=== PATIENT | male | born 1970 | race African-American/Black ===

== ENCOUNTER 2021-11-23 00:41 | Emergency (ER) | payer OTHER ==
[~2021-11-23] VITALS: Ht 182.9 cm; Wt 95.0 kg
[2021-11-23 01:12] VITALS: BP 136/78
[2021-11-23] MEDS ORDERED: DOXYCYCLINE HYCLATE 100MG CAPSULE PO ONE (03:15)
[2021-11-23] MEDS ORDERED: CEFTRIAXONE SODIUM 250 MG/VIAL IM ONE (03:15)
[2021-11-23] MEDS ORDERED: DOXY150T5 MT (03:18)
== END 2021-11-23 03:37 | disposition home or self-care (01) ==
LOC: ER 00:41
DX: N45.3 Epididymo-orchitis (principal); F12.10 Cannabis abuse, uncomplicated; I10 Essential (primary) hypertension; Z98.890 Other specified postprocedural states
CPT/HCPCS: 76870; 93976; 96372; 99284; J0696